=== PATIENT | male | born 1975 | race Caucasian/White ===

== ENCOUNTER 2022-10-28 15:05 | Emergency (ER) | payer BC, SELFPAY ==
--- NOTE | ~2022-10-28 | XR_ITS ---
EXAMINATION: XR abdomen obstructive series DATE: 10/28/2022 16:13 INDICATION: Abdominal pain with diarrhea. TECHNIQUE: Upright and supine views of the abdomen were obtained. COMPARISON: None. FINDINGS: There are no dilated loops of bowel. There is a small volume of stool in the colon. No free intraperitoneal gas. Calcifications in the pelvis are likely phleboliths. IMPRESSION: 1. Normal bowel gas pattern. Reviewed, dictated and finalized at location A. REPAIRER
[2022-10-28 15:34] VITALS: BP 137/90; PULSE 87; RESP 16; TEMP 37.2; O2SAT 100
--- NOTE | 2022-10-28 15:50 | ED.ABDPAIN ---
HPI - Abdominal Pain General Chief Complaint: Abdominal Pain Stated Complaint: stomach cramps Time Seen by Provider: 10/28/22 15:50 Source: patient Mode of arrival: ambulatory Limitations: no limitations History of Present Illness HPI narrative: 47-year-old male presents with complaint of intermittent epigastric and right upper quadrant abdominal pain for the last 10 days. Reports that it feels like cramping . Sometimes worse with eating other times eating makes it better. Denies nausea vomiting diarrhea. No change to bowel movements. Denies bloating. Does not have any abdominal cramping at this time but reports this is when he had time to come and be seen in urgent care. He does not have a primary care physician and he does not want to go to the emergency department. Afebrile. Ambulatory with steady gait, well appearing. All systems reviewed and negative except as noted above. Related Data Home Medications Medication Instructions Recorded Confirmed No Home Medications 10/28/22 10/28/22 Allergies Allergy/AdvReac Type Severity Reaction Status Date / Time No Known Allergies Allergy Verified 10/28/22 15:25 Review of Systems Review of Systems: CONSTITUTIONAL: Denies fever, chills, or sweats. EYES: Denies visual changes, redness, or discharge. ENT: Denies rhinorrhea, congestion, sore throat, or otalgia. CARDIOVASCULAR: Denies chest pain, palpitations, or edema. RESPIRATORY: Denies cough or dyspnea. GASTROINTESTINAL: Reports abdominal cramping. Denies nausea, vomiting, or diarrhea. GENITOURINARY: Denies dysuria or hematuria. SKIN: Denies rash or itching. MUSCULOSKELETAL: Denies back pain, joint pain, or myalgia. NEUROLOGIC: Denies headache, numbness, or weakness. PSYCHIATRIC: Denies anxiety or depression. All other systems reviewed are negative, except as documented in HPI. PMFSH Social History Social History Smoking status: Never smoker Alcohol intake: current Comments At time of signature, agree with nursing past medical, surgical, social and family history. There is no relevant family history pertinent to the presenting complaint. Exam Narrative: GENERAL: This is a well-nourished, well-developed patient, in no apparent distress. HEAD: normocephalic, atraumatic. EYES: PERRL. Sclera clear/white. Vision is grossly intact. EARS: External ears normal NOSE: External nose normal NECK: Neck supple, non-tender without lymphadenopathy, masses or thyromegaly. CARDIOVASCULAR: Regular rate and rhythm without murmurs, gallops, or rubs. RESPIRATORY: Clear to auscultation. Breath sounds equal bilaterally. No wheezes, rales, or rhonchi. GASTROINTESTINAL: Abdomen soft, nondistended. tenderness on palpation to right upper quadrant, epigastric, left upper quadrant. No point tenderness. No guarding.Bowel sounds are active. No hepato-splenomegaly, or palpable masses. No guarding. SKIN: warm, Dry, intact with no suspicious lesions or rash, good texture and turgor. NEURO: awake, alert, and oriented to person, place and time. There were no obvious focal neurologic abnormalities. EXTREMITIES: No joint tenderness, effusion, or edema noted. Course Course Level of Care: Express Care Visit Vital Signs Vital signs: Vital Signs Temperature 37.2 C 10/28/22 15:34 Pulse Rate 87 10/28/22 15:34 Respiratory Rate 16 10/28/22 15:34 Blood Pressure 137/90 10/28/22 15:34 Pulse Oximetry 100 10/28/22 15:34 Oxygen Delivery Room Air 10/28/22 15:34 Temperature 37.2 C 10/28/22 15:34 Pulse Rate 87 10/28/22 15:34 Respiratory Rate 16 10/28/22 15:34 Blood Pressure 137/90 10/28/22 15:34 Pulse Oximetry 100 10/28/22 15:34 Oxygen Delivery Room Air 10/28/22 15:34 Reviewed MDM - Abdominal Pain MDM Narrative Medical decision making narrative: discussed x-ray results with patient. X-ray normal. Referred to PCP for further evaluation. Did offer to send patient to ER but he did not f
== END 2022-10-28 16:31 | disposition home or self-care (01) ==
PROVIDERS: Emergency Provider Nurse Practitioner Family
DX: R10.11 Right upper quadrant pain (principal); R10.12 Left upper quadrant pain; R10.13 Epigastric pain; K21.9 Gastro-esophageal reflux disease without esophagitis
CPT/HCPCS: 74019; 99213; G0463

== ENCOUNTER 2022-10-29 06:44 | Emergency (ER) | payer BC, SELFPAY ==
--- NOTE | ~2022-10-29 | US_ITS ---
EXAMINATION: US right upper quadrant DATE: 10/29/2022 08:27 INDICATION: Right upper quadrant abdominal pain. TECHNIQUE: Multiple grayscale and Doppler ultrasound images of the abdomen were obtained. COMPARISON: None FINDINGS: The pancreas is obscured by bowel gas. The liver demonstrates heterogeneous echogenicity. N o liver surface nodularity. There is antegrade flow in main portal vein. The gallbladder is normal in size. No gallstones or gallbladder wall thickening. There is no sonographic P[place] sign. The common duct is normal and measures 4 mm . IMPRESSION: 1. Heterogeneous liver echogenicity, which is most commonly seen with steatosis. Malignancy or cirrho sis may have the same appearance. Consider abdomen MRI without and with contrast. Reviewed, dictated and finalized at location A. T PRESS OPERATOR IMPRESSION: 1. Heterogeneous liver echogenicity, which is most commonly seen with steatosis . Malignancy or cirrhosis may have the same appearance. Consider abdomen MRI wi thout and with contrast.
[2022-10-29 06:47] VITALS: BP 149/90; PULSE 83; RESP 15; TEMP 36.4; O2SAT 98
[2022-10-29 07:01] VITALS: BP 148/91; PULSE 73; RESP 23; O2SAT 98
[2022-10-29 07:02] LABS: Basophils Percent Auto 0.6 % (0.2-1.2); Eosinophils Absolute Auto 0.2 K/mm3 (0-0.3); Eosinophils Percent Auto 3.1 % (0-4.4); Hematocrit 39.3 % (42.0-52.0); Hemoglobin 12.9 g/dL (14.0-18.0); Immature Granulocyte Absolute 0.02 K/mm3 (0.00-0.031); Immature Granulocyte Percent A 0.3 % (0-0.5); Lymphocytes Absolute Auto 2.17 K/mm3 (0.9-3.2); Lymphocytes Percent Auto 31.8 % (18.3-44.2); Mean Corpuscular HGB Conc 32.8 g/dl (32-36); Mean Corpuscular Volume 79.2 fl (80-100); Mean Platelet Volume 9.6 fl (7.4-10.4); Monocytes Absolute Auto 0.7 K/mm3 (0.1-0.6); Monocytes Percent Auto 10.7 % (2.6-8.5); Neutrophils Absolute Auto 3.7 K/mm3 (1.3-6.7); Neutrophils Percent Auto 53.5 % (45.5-73.1); Platelet Count Result 411 k/mm3 (150-375); Red Blood Count 4.96 M/mm3 (4.6-6.20); Red Cell Distribution Width 14.5 % (11.5-14.5); White Blood Count 6.8 K/mm3 (4.5-10.0)
[2022-10-29 07:14] LABS: Alanine Aminotransferase 46 U/L (6-50); Albumin Level 3.9 g/dL (3.5-5.1); Alkaline Phosphatase 175 U/L (38-126); Anion Gap 8 mmol/L (8-16); Aspartate Amino Transferase 41 U/L (17-59); Bilirubin,Total 0.9 mg/dL (0.2-1.3); Blood Urea Nitrogen 17 mg/dL (9-20); Calcium 8.8 mg/dL (8.4-10.2); Carbon Dioxide 25 mmol/L (22-30); Chloride 104 mmol/L (98-107); Estimated Glomerular Filt Rate > 60; Glucose 133 mg/dL (65-110); Lipase 102 U/L (23-300); Potassium 3.9 mmol/L (3.4-5.0); Sodium 137 mmol/L (137-145)
[2022-10-29 07:38] LABS: Add Urine Microscopic? NO; Appearance Urine Clear (Clear); Bilirubin Urine Negative (Negative); Blood Urine Negative (Negative); Color Urine Yellow (Yellow); Glucose Urine UA Negative (Negative); Ketones Urine Negative (Negative); Leukocyte Esterase Ur Negative LEU/UL (Negative); Nitrate Urine Negative (Negative); Protein Urine Negative (Negative); Specific Grav Ur 1.025 (1.001-1.035); Urobilinogen Urine 0.2 mg/dL (<2.0); pH Urine 5.5 (5.0-9.0)
--- NOTE | 2022-10-29 08:03 | ED.ABDPAIN ---
HPI - Abdominal Pain General Chief Complaint: Abdominal Pain Stated Complaint: abd pain Time Seen by Provider: 10/29/22 07:02 History of Present Illness HPI narrative: Patient is a 47-year-old male who presents ER with upper abdominal discomfort. It is in the epigastrium and radiates laterally to each side. Intermittent. Occurs after he eats. Ongoing over the last couple weeks. No improvement with Pepto-Bismol. No diarrhea. Denies fevers or chills or sweats. Was seen in urgent care and told to come here if symptoms were persisting. Related Data Home Medications Medication Instructions Recorded Confirmed No Home Medications 10/28/22 10/28/22 Allergies Allergy/AdvReac Type Severity Reaction Status Date / Time No Known Allergies Allergy Verified 10/28/22 15:25 Review of Systems Review of Systems: All systems reviewed & are unremarkable except as noted in HPI and below Constitutional: Constitutional: Denies chills, Denies fatigue and Denies fever(s) Cardiovascular: Cardiovascular: Denies chest pain, Denies rapid heart rate and Denies radiating jaw, neck or arm pain Respiratory: Respiratory: Denies cough, Denies dyspnea and Denies wheezing Gastrointestinal: Gastrointestinal: Reports abdominal pain, Denies diarrhea, Reports nausea and Denies vomiting PMFSH Past Medical History Medical History (Updated 10/29/22 @ 10:38 by Alvin Luna MD) Healthy adult male Surgical History Surgical History (Updated 10/29/22 @ 08:06 by Alvin Luna MD) No history of previous surgery Social History Social History Smoking status: Never smoker Alcohol intake: current Exam Narrative: GENERAL: Well-appearing, well-nourished, and in no acute distress. HEAD: Normocephalic, atraumatic. EYES: PERRL and EOMI. CHEST: Clear to auscultation. No respiratory distress. HEART: Regular rate and rhythm. Normal peripheral pulses. ABDOMEN: Soft, mild epigastric discomfort without guarding, nondistended. EXTREMITIES: Normal range of motion. No edema. SKIN: Warm, dry, no rash. NEURO: Alert and oriented x3. PSYCH: Normal mood and affect. Course Course Emergency Course: Patient informed of results resting comfortably. Discussed need for follow-up and establishing care with a primary care doctor so he can obtain an outpatient MRI of the abdomen to further evaluate his liver. Vital Signs Vital signs: Vital Signs Temperature 97.6 F 10/29/22 06:47 Pulse Rate 83 10/29/22 06:47 Respiratory Rate 15 10/29/22 06:47 Blood Pressure 149/90 H 10/29/22 06:47 Pulse Oximetry 98 10/29/22 06:47 Oxygen Delivery Room Air 10/29/22 06:47 Temperature 97.6 F 10/29/22 06:47 Pulse Rate 83 10/29/22 06:47 Respiratory Rate 15 10/29/22 06:47 Blood Pressure 149/90 H 10/29/22 06:47 Pulse Oximetry 98 10/29/22 06:47 Oxygen Delivery Room Air 10/29/22 06:47 MDM - Abdominal Pain Lab Data 10/29/22 06:54 10/29/22 06:54 Labs: Lab Results 10/29/22 10/29/22 10/29/22 Range/Units 06:54 06:54 06:54 WBC 6.8 (4.5-10.0) K/mm3 RBC 4.96 (4.6-6.20) M/mm3 Hgb 12.9 L (14.0-18.0) g/dL Hct 39.3 L (42.0-52.0) % MCV 79.2 L (80-100) fl MCH 26.0 (26-34) pg MCHC 32.8 (32-36) g/dl RDW 14.5 (11.5-14.5) % Plt Count 411 H (150-375) k/mm3 MPV 9.6 (7.4-10.4) fl Immature Gran % (Auto) 0.3 (0-0.5) % Neut % (Auto) 53.5 (45.5-73.1) % Lymph % (Auto) 31.8 (18.3-44.2) % [place] % (Auto) 10.7 H (2.6-8.5) % Eos % (Auto) 3.1 (0-4.4) % Baso % (Auto) 0.6 (0.2-1.2) % Lymph # (Auto) 2.17 (0.9-3.2) K/mm3 [place] # (Auto) 0.7 H (0.1-0.6) K/mm3 Eos # (Auto) 0.2 (0-0.3) K/mm3 Baso # (Auto) 0.0 (0.0-0.1) K/mm3 Abs Immat Gran (auto) 0.02 (0.00-0.031) K/mm3 Absolute Neuts (auto) 3.7 (1.3-6.7) K/mm3 Absolute Nucleated RBC 0.0 (0.0-0.012) K/mm3 Nucleated RBC % 0.0 (0.0-0.2) % Sodium
[2022-10-29 08:29] VITALS: BP 146/86; PULSE 73; RESP 25; O2SAT 98
[2022-10-29 09:15] VITALS: BP 140/82; PULSE 92; RESP 19; O2SAT 97
[2022-10-29 10:45] VITALS: BP 148/90; PULSE 73; RESP 16; O2SAT 98
== END 2022-10-29 10:45 | disposition home or self-care (01) ==
PROVIDERS: Emergency Medicine; Emergency Provider Emergency Medicine
DX: K76.0 Fatty (change of) liver, not elsewhere classified (principal)
CPT/HCPCS: 36415; 76705; 80053; 81003; 83690; 85025; 99284

== ENCOUNTER 2022-12-26 09:57 | Outpatient (CLI) | payer BC, SELFPAY ==
[2022-12-26 19:28] LABS: Hemoglobin A1C 5.6 % (<5.7)
[2022-12-31 18:22] LABS: H pylori Ag Stool Not Detected (Not Detected)
== END 2022-12-26 09:58 | disposition home or self-care (01) ==
LOC: ANHBWCLAB 09:58
PROVIDERS: PCP Family Medicine; Visit Provider Family Medicine
DX: Z00.00 Encounter for general adult medical examination without abnormal findings (principal); R10.9 Unspecified abdominal pain; D64.9 Anemia, unspecified; E61.1 Iron deficiency; R73.09 Other abnormal glucose
CPT/HCPCS: 36415; 83036; 87338

== ENCOUNTER 2023-01-23 01:29 | Day surgery (SDC) | payer BC, SELFPAY ==
[2023-01-09 14:09] VITALS: BMI 26.6
[2023-01-23 09:22] VITALS: BP 145/105; PULSE 68; RESP 18; TEMP 36.2; O2SAT 100
[2023-01-23] MEDS: LACTATED RINGERS 1,000 ML 150 ML IV CONT (09:31)
--- NOTE | 2023-01-23 09:47 | P.PNAN_ITS ---
Anes - Initial Pre Proc Eval Procedure: Operation Date: 01/23/23 10:30 Proposed Procedures p Esophagogastroduodenoscopy & Colonoscopy - Lefty Heart MD Date/Time: 01/23/23 09:47 Surgeon: Lefty Heart MD Pre Op Diagnosis: anemia, abdominal pain Patient Data Age: 48 Gender: M Height: 1.78 m Weight: 83.7 kg Last Vital Signs Temp 97.2 F L 01/23/23 09:22 Pulse 68 01/23/23 09:22 Resp 18 01/23/23 09:22 BP 145/105 H 01/23/23 09:22 Pulse Ox 100 01/23/23 09:22 O2 Del Method Room Air 01/23/23 09:22 Allergies Allergy/AdvReac Type Severity Reaction Status Date / Time No Known Allergies Allergy Verified 12/08/22 10:29 Home Medications Medication Instructions Recorded Confirmed Type cholecalciferol (vitamin D3) 1,250 1,250 mcg PO WEEKLY #14 caps 12/08/22 01/09/23 Rx mcg (50,000 unit) capsule ferrous sulfate 325 mg (65 mg 325 mg PO DAILY #90 tabs 12/08/22 01/09/23 Rx iron) tablet alprazolam 1 mg tablet (Xanax) 1 mg PO ONCE #1 tablet 01/01/23 01/09/23 Rx omeprazole 20 mg capsule,delayed 20 mg PO DAILY #90 caps 01/05/23 01/09/23 Rx release Patient hx anesthesia problems: none Family hx anesthesia problems: none Results Review: All pre-operative results and documents have been reviewed as part of the pre- operative evaluation. [facility] Past Medical History Medical History (Updated 01/01/23 @ 19:39 by Hitseh Gambino MD) Healthy adult male Surgical History Surgical History (Updated 10/29/22 @ 08:06 by Alvin Luna MD) No history of previous surgery Family History Family History (Updated 12/08/22 @ 10:21 by Ericka Gallegos MA) Father Cerebrovascular accident Social History Social History (Updated 12/08/22 @ 10:23 by Ericka Gallegos MA) Smoking status: Never smoker Alcohol intake: current Alcohol use details: rarely Substance use: never Substance use type: does not use Lack of Transportation: No Lack of Food: Never True Current Housing: I Have Housing Concerned About Future Housing: No Difficulty Paying Gas/Electric Bills: No Difficulty Paying for Meds: No Currently Unemployed: No Education: Trade/Vocational Certificate Difficulty w/ Childcare or Family Care: No Living arrangements: with family Occupation/Education: occupation 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 Informed Consent: The patient's anesthetic plan and its attendant risks and benefits were discussed with the patient/family/POA. Questions were solicited and answers provided to the satisfaction of the p
--- NOTE | 2023-01-23 09:59 | PM.HPGS ---
History of Present Illness History of Present Illness Consent: Risks, benefits, and alternatives have been discussed and questions answered. Patient agrees to proceed with procedure. Chief complaint: anemia, abdominal pain Narrative: Jay Davis is a 48 year old male with intermittent abd pain, diagnosed with mild dinah but no overt gib, never had scopes. MRI abdomen unremarkable with normal liver. He was using iron and prilosec without any difference. Review of Systems Constitutional: Constitutional: Denies headache(s) and Denies weakness Eyes: Eyes: Denies blurry vision ENT: Reports Normal hearing present, Denies headache(s) and Denies neck pain Cardiovascular: Cardiovascular: Denies chest pain and Denies dyspnea Respiratory: Respiratory: Denies dyspnea Gastrointestinal: Gastrointestinal: Reports no additional gastrointestinal complaints Genitourinary: Genitourinary: Denies dysuria Musculoskeletal: Musculoskeletal: Denies neck pain Integumentary/Breasts: Skin/Breast: Denies dry skin Neurologic: Reports Normal hearing present, Denies headache(s) and Denies weakness Psychiatric: Psychiatric: Denies anxiety Endocrine: Endocrine: Denies change in body appearance Hematologic/Lymphatic: Hematologic/Lymphatic: Denies easy bleeding Allergic/Immunologic: Allergic/Immunologic: Denies urticaria PMFSH Past Medical History Medical History (Updated 01/01/23 @ 19:39 by Hitesh Gambino MD) Healthy adult male Surgical History Surgical History (Updated 10/29/22 @ 08:06 by Alvin Luna MD) No history of previous surgery Family History Family History (Updated 12/08/22 @ 10:21 by Ericka Gallegos MA) Father Cerebrovascular accident Social History Social History (Updated 12/08/22 @ 10:23 by Ericka Gallegos MA) Smoking status: Never smoker Alcohol intake: current Alcohol use details: rarely Substance use: never Substance use type: does not use Lack of Transportation: No Lack of Food: Never True Current Housing: I Have Housing Concerned About Future Housing: No Difficulty Paying Gas/Electric Bills: No Difficulty Paying for Meds: No Currently Unemployed: No Education: Trade/Vocational Certificate Difficulty w/ Childcare or Family Care: No Living arrangements: with family Occupation/Education: occupation 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 Gender identity (if verbalized by the patient): Male Spiritual care concerns: No Agree to blood products: Yes Meds Home Medications and Allergies Home Medications Medication Instructions Recorded Confirmed Type cholecalciferol (vitamin D3) 1,250 1,250 mcg PO WEEKLY #14 caps 12/08/22 01/09/23 Rx mcg (50,000 unit) capsule ferrous sulfate 325 mg (65 mg 325 mg PO DAILY #90 tabs 12/08/22 01/09/23 Rx iron) tablet alprazolam 1 mg tablet (Xanax) 1 mg PO ONCE #1 tablet 01/01/23 01/09/23 Rx omeprazole 20 mg capsule,delayed 20 mg PO DAILY #90 caps 01/05/23 01/09/23 Rx release Allergies Allergy/AdvReac Type Severity Reaction Status Date / Time No Known Allergies Allergy Verified 12/08/22 10:29 Vital Signs Vital Signs - 24 hr 01/23/23 09:22 Temperature 97.2 F L Pulse Rate 68 Respiratory Rate 18 Blood Pressure 145/105 H Pulse Oximetry 100 Oxygen Delivery Room Air Exam Const: General: comfortable and no acute distress HENMT: Face/Nose/Sinus: Normal nares present Eyes: General: appearance normal, both eyes and all related structures Neck: Neck: no JVD Resp: Auscultation: clear to auscultation bilaterally Cardio: Rate: regular rate Rhythm: regular rhythm GI: Inspection: non-distended GI Palp: Yes Soft to palpation Skin: General skin exam: normal color Neuro: General: gait normal Speech: normal speech Extrem: General: normal to inspection Psych: Mental Status: mental status grossly normal Assessment and Plan Assessment and plan (1) Iron deficiency
[2023-01-23] MEDS: BENZOCAINE (*SP) 60 ML SPRAY CAN (HURRICAINE) 1 SPRAY MUCOUS MEM (10:06)
[2023-01-23 10:27] VITALS: BP 100/67; PULSE 62; RESP 21; O2SAT 98
[2023-01-23 10:37] VITALS: BP 104/71; PULSE 67; RESP 17; O2SAT 98
--- NOTE | 2023-01-23 10:41 | SUR.OPER ---
EGD start 1007 end 1010, Colon start 1014
[2023-01-23 10:47] VITALS: BP 129/69; PULSE 61; RESP 17; O2SAT 100
== END 2023-01-23 10:55 | disposition home or self-care (01) ==
PROVIDERS: PCP Family Medicine; Visit Provider Internal Medicine Gastroenterology
PROC: 0DJ08ZZ Inspection of Upper Intestinal Tract, Via Natural or Artificial Opening Endoscopic (ICD-10-PCS; CPT 43235; principal; 2023-01-23 10:30)
DX: Z12.11 Encounter for screening for malignant neoplasm of colon (principal); K63.5 Polyp of colon; K64.8 Other hemorrhoids; R10.30 Lower abdominal pain, unspecified; D50.9 Iron deficiency anemia, unspecified
CPT/HCPCS: 45380; 43239; 88305; J2704; J7120

== ENCOUNTER 2024-02-03 06:44 | Outpatient (CLI) | payer BC, SELFPAY ==
[2024-02-03 18:28] LABS: Hematocrit 40.6 % (42.0-52.0); Mean Corpuscular HGB Conc 29.6 g/dl (32-36); Mean Corpuscular Hemoglobin 23.1 pg (26-34); Mean Corpuscular Volume 78.2 fl (80-100); Mean Platelet Volume 10.8 fl (7.4-10.4); Platelet Count Result 222 k/mm3 (150-375); Red Blood Count 5.19 M/mm3 (4.6-6.20); Red Cell Distribution Width 19.5 % (11.5-14.5)
[2024-02-03 19:08] LABS: Hemoglobin A1C 6.1 % (<5.7)
[2024-02-03 20:01] LABS: Vitamin D 25 Hydroxy 28.6 ng/mL
[2024-02-03 20:18] LABS: Alanine Aminotransferase 32 U/L (6-50); Albumin Level 4.3 g/dL (3.5-5.1); Alkaline Phosphatase 97 U/L (38-126); Anion Gap 7 mmol/L (4-12); Aspartate Amino Transferase 66 U/L (17-59); Bilirubin,Total 0.5 mg/dL (0.2-1.3); Blood Urea Nitrogen 24 mg/dL (9-20); Calcium 9.4 mg/dL (8.4-10.2); Carbon Dioxide 25 mmol/L (22-30); Chloride 108 mmol/L (98-107); Cholesterol 207 mg/dL (0-200); Estimated Glomerular Filt Rate > 60; Glucose 117 mg/dL (65-110); HDL Direct 45 mg/dL; Potassium 3.8 mmol/L (3.4-5.0); Sodium 140 mmol/L (137-145); Triglycerides 134 mg/dL (<150)
[2024-02-03 20:29] LABS: LDL Cholesterol Direct 120 mg/dL
[2024-02-07 14:34] LABS: Testosterone Free 43.8 pg/mL (35.0-155.0); Testosterone Total 384 ng/dL (250-1100)
== END 2024-02-03 06:45 | disposition home or self-care (01) ==
LOC: ANHBWCLAB 06:45
PROVIDERS: PCP Family Medicine; Visit Provider Family Medicine
DX: R74.8 Abnormal levels of other serum enzymes (principal); D64.9 Anemia, unspecified; E61.1 Iron deficiency; K76.0 Fatty (change of) liver, not elsewhere classified; R10.9 Unspecified abdominal pain; R53.83 Other fatigue; R73.09 Other abnormal glucose
CPT/HCPCS: 36415; 80053; 80061; 82306; 83036; 84402; 84403; 85027